=== PATIENT | female | born 1965 | race Caucasian/White ===

== ENCOUNTER 2019-10-13 12:12 | Emergency (ER) | payer BC, SELFPAY ==
[2019-10-13 12:32] VITALS: BP 144/91; PULSE 107; RESP 16; TEMP 37.1; O2SAT 99
--- NOTE | 2019-10-13 12:47 | ED.EYEPROB ---
HPI - Eye Problem General Chief complaint: Eye Problems Stated complaint: Cellulitis in left eye Time Seen by Provider: 10/13/19 12:44 Source: patient and RN notes reviewed Mode of arrival: ambulatory Limitations: no limitations History of Present Illness HPI Narrative: 54 female presents with concern for tenderness, redness, swelling of the left upper eyelid that started 3 days ago. Reports the tenderness and swelling has moved to her left cheek. She reports she has been using leftover antibiotic ointment with no relief. Reports using warm compresses with some relief of swelling. Denies vision changes, discharge. Denies sinus congestion, sinus pain, fever, malaise, eye pain MD chief complaint: other (Eyelid swelling) Related Data Home Medications Medication Instructions Recorded Confirmed lisinopril-hydrochlorothiazide tablet 10/13/19 Allergies Allergy/AdvReac Type Severity Reaction Status Date / Time Penicillins Allergy Unknown Verified 10/13/19 12:31 Sulfa (Sulfonamide Allergy Unknown Verified 10/13/19 12:31 Antibiotics) Review of Systems Review of Systems: Narrative: CONSTITUTIONAL: Denies malaise, chills, sweats, or fever. EYES: Denies visual changes, redness, or discharge. Reports left upper eyelid swelling, tenderness ENT: Denies rhinorrhea, congestion, sinus pain, otalgia or sore throat. CARDIOVASCULAR: Denies chest pain, palpitations, or edema. RESPIRATORY: Denies cough or dyspnea. SKIN: Reports left upper eyelid, left cheek redness, swelling, tenderness MUSCULOSKELETAL: Denies myalgia. NEUROLOGIC: Denies numbness, weakness, or headache. All systems reviewed & are unremarkable except as noted in HPI and below PMFSH Comments At time of signature, agree with nursing past medical, surgical, social and family history. There is no relevant family history pertinent to the presenting complaint Exam Narrative: Exam Narrative: GENERAL: Well-appearing, well-nourished, and in no acute distress. HEAD: Normocephalic, atraumatic. EYES: PERRLA, conjunctivae clear, and EOMI. No nystagmus. Superficial left upper eyelid swelling, mild edema noted left upper cheek. No periorbital edema. No palpable hordeolum or chalazion ENT: Nares clear, turbinates pink, no rhinorrhea or epistaxis. Mucous membranes moist. TM pearly guo with sharp light reflex bilaterally; no tragal tenderness. Oropharynx without erythema or lesions. Tonsils not enlarged and without exudate. NECK: Supple. CHEST: No respiratory distress. Speaks in full sentences. HEART: Regular rate and rhythm. SKIN: Warm, dry, no rash. NEURO: Alert and oriented x3. PSYCH: Normal mood and affect Course Course Emergency Course: Patient is aware of diagnosis, understands and agrees to treatment plan. Anticipatory guidance given. Patient agrees to follow-up as directed and is aware of reasons to seek care at the emergency department. Portions of this record may have been created with voice recognition software Vital Signs Vital signs: Vital Signs Temperature 98.7 F 10/13/19 12:32 Pulse Rate 107 H 10/13/19 12:32 Respiratory Rate 16 10/13/19 12:32 Blood Pressure 144/91 H 10/13/19 12:32 Pulse Oximetry 99 10/13/19 12:32 Temperature 98.7 F 10/13/19 12:32 Pulse Rate 107 H 10/13/19 12:32 Respiratory Rate 16 10/13/19 12:32 Blood Pressure 144/91 H 10/13/19 12:32 Pulse Oximetry 99 10/13/19 12:32 Reviewed. Patient has history of hypertension MDM - Eye Problem MDM Narrative Medical decision making narrative: Consideration of the following conditions may be warranted for the presenting problem, they are not final diagnoses: Bacterial conjunctivitis, allergic conjunctivitis, viral conjunctivitis, foreign body, blepharitis, chalazion, hordeolum, corneal abrasion. Exam findings show no acute concerns or changes; patient is non-toxic appearing and is in no distress. Patient is appropriate for outpatient treatment and follow-up. Differenti
== END 2019-10-13 13:16 | disposition home or self-care (01) ==
PROVIDERS: Emergency Provider Nurse Practitioner
DX: H57.11 Ocular pain, right eye (principal)
CPT/HCPCS: 99213; G0463